=== PATIENT | female | born 1960 | race African-American/Black ===

== ENCOUNTER 2016-07-17 11:01 | Inpatient (IN) | payer BC ==
[2016-07-11 10:50] VITALS: BMI 37.2
[2016-07-28] MEDS ORDERED: LIDOCAINE 1%-EPI 1:100,000 30 ML MDV IJ ONE (07:15)
[2016-07-28] MEDS ORDERED: BUPIVACAINE HCL/PF 2.5 MG/ML - 30 ML VIAL IJ ONE (07:15)
[2016-07-28] MEDS ORDERED: oxyCODONE HCL 10 MG SUSTAINED ACTING TABLET ONE (07:24)
[2016-07-28] MEDS: oxyCODONE HCL 10 MG SUSTAINED ACTING TABLET PO STA ×2 (07:25→15:20)
--- NOTE | 2016-07-28 07:32 | HP ---
History & Physical Update - History History: No Change - Physical Physical: No Change - Assessment Assessment: No Change - Plan Plan: No Change (Here today for elective spine surgery. Prior to surgery, pt's chief complaint is low back pain with radiation down her RLE causing tingling in her foot. This is my first time meeting the patient. I informed her that I will be assisting Dr. Kelly during todays procedure. Patient is fine with it.)
[2016-07-28] MEDS ORDERED: MIDAZOLAM HCL 2 MG/2 ML SINGLE DOSE VIAL ONE ×2 (10:42→12:27)
[2016-07-28] MEDS ORDERED: ePHEDrine SULFATE 50 MG/1 ML AMPULE ONE (11:02)
[2016-07-28] MEDS ORDERED: LACTATED RINGERS SOLUTION 1,000 ML IV SCH ×2 (11:30→13:30)
[2016-07-28] MEDS ORDERED: oxyCODONE HCL 5 MG TABLET PO PRN ×2 (11:51→13:23)
[2016-07-28] MEDS ORDERED: ONDANSETRON 4 MG/2 ML VIAL IVPUSH PRN (11:51)
[2016-07-28] MEDS ORDERED: GUM MASTIC/STORAX/MSAL/ALCOHOL 1 DRP DROPSBTL MC ONE (12:51)
[2016-07-28] MEDS ORDERED: BUPIVACAINE HCL/PF 0.25% (2.5MG/ML) 10 ML VIAL IJ ONE (13:06)
[2016-07-28] MEDS ORDERED: ACETAMINOPHEN INJECTION 100 ML IVPB ONE (13:22)
--- NOTE | 2016-07-28 13:22 | OP ---
Operative Note - Note: Operative Date: 07/28/16 Pre-Operative Diagnosis: L5-S1 spondylollithesis, radicular pain Operation: Posterior lumbar decompression/fusion/instrumentation, transforaminal lumbar interbody fusion L5-S1, allograft implant and neuromonitoring Post-Operative Diagnosis: Same as Pre-op Surgeon: Aditya Kelly Administrative Library Assistant: Steve Grimes Anesthesiologist/RECREATION TEACHER: Travon Bell Anesthesia: Spinal Estimated Blood Loss (mls): 20 Drains & Tubes with Location: Lumbosacral region hemovac Fluid Volume Replaced (mls): 1,500 Operative Report Dictated: Yes
[2016-07-28] MEDS ORDERED: ONDANSETRON 4 MG/2 ML VIAL IVPB PRN (13:23)
[2016-07-28] MEDS ORDERED: KETOROLAC TROMETHAMINE 30 MG/1 ML VIAL IVPUSH PRN (13:23)
[2016-07-28] MEDS ORDERED: ACETAMINOPHEN 1000 MG/100 ML VIAL (NON FORMULARY) IVPB PRN ×2 (13:23→16:30)
--- NOTE | 2016-07-28 13:23 | SURG ---
Surgery Research Environmental Scientist Note Research Environmental Scientist: Steve Grimes PA-C Date of Service: 07/28/16 Diagnosis: L5-S1 spondylolithesis; radiculopathy Procedure: Posterior lumbar decompression/fusion/instrumentation, transforaminal lumbar interbody fusion L5-S1, allograft implant and neuromonitoring I was present for the entirety of the operative procedure. For further detail, please refer to operative report. Visit type - Case Type Case Type: Scheduled Admission - New patient This patient is new to me today: Yes Date on this admission: 07/28/16
[2016-07-28] MEDS: diazePAM CARPU-JECT 10 MG/2 ML DISP.SYRIN IVPUSH ONE ×3 (14:05→15:53)
[2016-07-28] MEDS ORDERED: IBUPROFEN 400 MG TABLET (FP) PO PRN (17:05)
[2016-07-28] MEDS: CLINDAMYCIN 900 MG PREMIX IVPB 50 ML IVPB SCH (17:13)
[2016-07-28] MEDS: PREGABALIN 50 MG CAPSULE PO SCH (21:22)
[2016-07-28] MEDS: oxyCODONE HCL 5 MG TABLET PO PRN (21:58)
[2016-07-28] MEDS ORDERED: MONTELUKAST NA 10 MG TABLET PO SCH (22:00)
[2016-07-28] MEDS ORDERED: CHOLECALCIFEROL (VITAMIN D3) 1,000 UNIT TABLET (FP) PO SCH (22:00)
[2016-07-28] MEDS: CYCLOBENZAPRINE HCL 10 MG TABLET (FP) PO PRN (22:30)
[2016-07-29] MEDS: CLINDAMYCIN 900 MG PREMIX IVPB 50 ML IVPB SCH ×2 (01:40→10:39)
[2016-07-29] MEDS: morphine CARPU-JECT 4 MG/1 ML DISP.SYRIN IVPUSH PRN ×2 (03:55)
[2016-07-29 05:52] VITALS: BP 127/78; PULSE 103; TEMP 99.4
[2016-07-29] MEDS: CYCLOBENZAPRINE HCL 10 MG TABLET (FP) PO PRN (06:35)
--- NOTE | 2016-07-29 07:02 | DS ---
Physical Exam: SUBJECTIVE: Patient seen and examined OBJECTIVE: Vital Signs Temperature 99.4 F 07/29/16 05:51 Pulse Rate 103 H 07/29/16 05:51 Respiratory Rate 19 07/29/16 05:51 Blood Pressure 127/78 07/29/16 05:51 O2 Sat by Pulse Oximetry (%) 96 07/29/16 05:51 PHYSICAL EXAM GENERAL: The patient is awake, alert, and fully oriented, in no acute distress. HEAD: Normal with no signs of trauma. EYES: PERRL, extraocular movements intact, sclera anicteric, conjunctiva clear. NECK: Trachea midline, full range of motion, supple. LUNGS: CTA b/l anteriorly HEART: RRR ABD: Soft,NT, ND, normoactive bowel sounds LE: 2+ pulses, warm, well-perfused, no edema. NEUROLOGICAL: CN II - XII grossly intact. Normal speech, gait not observed. PSYCH: Normal mood, normal affect. SKIN: Lumbosacral incision x2 c/d/i. Hemovac with minimal output. No signs of infection or hematoma LABS HOSPITAL COURSE: Date of Admission:07/28/16 Date of Discharge: 07/29/16 The patient was admitted to the Med-Surg Unit after an elective repair of their L5-S1 spondylolithesis. Now, s/p Posterior lumbar decompression/fusion/ instrumentation, transforaminal lumbar interbody fusion L5-S1, allograft implant and neuromonitoring. The day of surgery, the patient ambulated the hallways with assistance. Narcotic and non-narcotic pain management control was achieved with an oral and IV approach. POD #1, the surgical drain was removed fully intact and without incident. An xray was obtained and confirmed hardware placement at L5-S1, no fractures or dislocations. Bailey-operative IV ABX were administered. DVT prophylaxis was achieved with SCDs and early ambulation. The patient ambulated with Physical Therapy and no services were recommended upon discharge. Narcotic scripts and or muscle relaxants were checked with [facility] SCIENTIFIC SOFTWARE DEVELOPER prior to escribe. The discharge instructions and an oral pain management plan were reviewed with the patient. All questions answered. Above plan discussed with Dr. Kelly and agreed. Minutes to complete discharge: 15 <Steve Grimes P - Last Filed: 07/29/16 07:16> Physical Exam: SUBJECTIVE: Patient seen and examined OBJECTIVE: Vital Signs Temperature 99.4 F 07/29/16 05:51 Pulse Rate 103 H 07/29/16 05:51 Respiratory Rate 19 07/29/16 05:51 Blood Pressure 127/78 07/29/16 05:51 O2 Sat by Pulse Oximetry (%) 96 07/29/16 05:51 PHYSICAL EXAM GENERAL: The patient is awake, alert, and fully oriented, in no acute distress. HEAD: Normal with no signs of trauma. EYES: PERRL, extraocular movements intact, sclera anicteric, conjunctiva clear. ENT: Ears normal, nares patent, oropharynx clear without exudates, moist mucous membranes. NECK: Trachea midline, full range of motion, supple. LUNGS: Breath sounds equal, clear to auscultation bilaterally, no wheezes, no crackles, no accessory muscle use. HEART: Regular rate and rhythm, S1, S2 without murmur, rub or gallop. ABDOMEN: Soft, nontender, nondistended, normoactive bowel sounds, no guarding, no rebound, no hepatosplenomegaly, no masses. EXTREMITIES: 2+ pulses, warm, well-perfused, no edema. NEUROLOGICAL: Cranial nerves II through XII grossly intact. Normal speech, gait not observed. PSYCH: Normal mood, normal affect. SKIN: Warm, dry, normal turgor, no rashes or lesions noted. LABS CBC,CMP WBC 12.2 K/mm3 (4.0-10.8) H 07/29/16 07:40 RBC 4.03 M/mm3 (3.60-5.2) 07/29/16 07:40 Hgb 10.9 GM/dl (10.7-15.3) 07/29/16 07:40 Hct 32.4 % (32.4-45.2) 07/29/16 07:40 MCV 80.5 fl (80-96) 07/29/16 07:40 MCHC 33.5 g/dl (32.0-36.0) 07/29/16 07:40 RDW 14.2 % (11.6-15.6) 07/29/16 07:40 Plt Count 249 K/MM3 (134-434) 07/29/16 07:40 MPV 10.6 fl (7.5-11.1) 07/29/16 07:40 Sodium 140 mmol/L (136-145) 07/29/16 07:40 Potassium 4.5 mmol/L (3.5-5.1) 07/29/16 07:40 Chloride 105 mmol/L (98-107) 07/29/16 07:40 Carbon Dioxide 25 mmol/L (22-28) 07/29/16 07:40 Anion Gap 10 (8-16) 07/29/16 07:40 BUN 8 mg/dl (7-18) 07/29/16 07:40 Creatinine 0.6 mg/dl (0.6-1.3) 07/29/16 07:40 Random Glucose 133 mg/dl (74-106) H 07/29/16 07:40 Calcium 9.0 mg/dl (8.4-10.2) 07/29/16 07:40 HOSPITAL COURSE: Date of Admission:07/28/16 Date of Discharge: 07/31/16 The patient was admitted to the Med-Surg Unit after an elective repair of their L5-S1 Spondylolisthesis. The day of surgery, the patient ambulated the hallways with assistance. Narcotic and non-narcotic pain management control was achieved with an oral and IV approach. POD #1, the surgical drain was removed fully intact and without incident. An xray was obtained and confirmed hardware placement at L5-S1, no fractures or dislocations. Bailey-operative IV ABX were administered. DVT prophylaxis was achieved with SCDs and early ambulation. The patient ambulated with Physical Therapy and no services were recommended upon discharge. Narcotic scripts and or muscle relaxants were checked with [facility] SCIENTIFIC SOFTWARE DEVELOPER prior to escibe. The discharge instructions and an oral pain management plan were reviewed with the patient. All questions answered. Above plan discussed with Dr. Kelly and agreed. <Aditya Kelly - Last Filed: 07/31/16 15:41> Visit type - Case Type Case Type: Scheduled Admission <Steve Grimes - Last Filed: 07/29/16 07:16>
[2016-07-29] MEDS: oxyCODONE HCL 5 MG TABLET PO PRN (08:22)
[2016-07-29 09:05] LABS: MCHC 33.5 g/dl (32.0-36.0); MEAN CELL VOLUME 80.5 fl (80-96); MEAN PLT VOLUME 10.6 fl (7.5-11.1); PLATELET COUNT 249 K/MM3 (134-434); RDW 14.2 % (11.6-15.6); WHITE BLOOD COUNT 12.2 K/mm3 (4.0-10.8)
--- NOTE | 2016-07-29 09:19 | OP ---
DATE OF OPERATION: 07/28/2016 PREOPERATIVE DIAGNOSES: 1. Spondyloses, L5-S1. 2. Spinal stenosis. POSTOPERATIVE DIAGNOSES: 1. Spondyloses, L5-S1. 2. Spinal stenosis. PROCEDURE PERFORMED: 1. Transforaminal lumbar interbody fusion, L5-S1. 2. Placement of instrumentation, L5-S1. 3. Hemilaminectomy. 4. Placement of prosthetic cage. SURGEON: Aditya Kelly MD BRICK PITCHER: MADELEINE De Leon ESTIMATED BLOOD LOSS: 50 mL. INTRAVENOUS FLUID: Per Anesthesia. COMPLICATIONS: None. ANESTHESIA: Spinal. DISPOSITION: Patient brought to the PACU in stable condition. INDICATIONS FOR SURGERY: The patient is a 55-year-old female who has been suffering from pain from her back down her right leg. X-rays and MRI were completed, which noted that she had a spondylolisthesis at L5-S1 contributing to stenosis at that level. She had gone through an exhaustive course of treatment which included medications, physical therapy, as well as injections. Unfortunately, her pain continued to persist despite all this. At this point, risks, benefits, and alternatives were discussed, and the patient consented to surgery. OPERATIVE NOTE: Patient was brought to the operating room by Anesthesia. After appropriate patient identification was performed, spinal anesthesia was given. She was placed prone onto the OR table. The patient was able to position herself and pad all areas of bony prominences. The C-arm was brought in. The L5-S1 pedicles were marked off. Lidocaine, 10 mL, with epinephrine was injected into her back. At this time, her back was prepped and draped in a sterile manner. At this point, a time-out was completed. An incision was made over the L5-S1 pedicles. Dissection was carried down to the fascia. Fascia was split at this time. Under C-arm guidance, trocars were advanced above the L5-S1 pedicles, the trocar wires inserted, and over the wires, tap was performed. On the right-hand side, retractor blades were set up to expose the L5-S1 facet joint. The facet joint was removed with a joe and osteotome. The disc was entered using a series of pituitary, Kerrison rongeurs, and curettes. The discectomy was completed. The endplates were decorticated at this time. Bone was laid down. A size 8 cage filled with bone graft was placed in. Screw heads were placed over the screws. A derrek was measured and placed in. Capsule was placed on. Compression and final tightening was performed. On the left hand side, a derrek was measured and placed in and final tightening was performed. All extra instrumentation was removed at this time. AP and lateral x-rays confirmed the instrumentation to be in good position. The fascia was closed with a No. 1 Vicryl suture. The subcutaneous tissues were closed with 2-0 Vicryl suture. Skin was closed with 3-0 Monocryl suture. Dermabond was applied. Steri-Strips were applied. Sterile dressings were applied. Patient was placed supine on the OR bed and brought to the PACU in stable condition. It should be noted that patient was able to flex/ex her legs in the PACU. [place] [id number] MTDD
[2016-07-29] MEDS ORDERED: PT OWN MED DRAWER 7, Y5N ONE (09:36)
[2016-07-29] MEDS ORDERED: LORATADINE 10 MG TABLET PO SCH (10:00)
[2016-07-29] MEDS ORDERED: THYROID 30 MG TABLET PO SCH (10:00)
[2016-07-29] MEDS ORDERED: amLODIPine BESYLATE 10 MG TABLET (FP) PO SCH (10:00)
[2016-07-29] MEDS ORDERED: LEFLUNOMIDE 10 MG TABLET PO SCH (10:00)
[2016-07-29] MEDS: PREGABALIN 50 MG CAPSULE PO SCH (10:38)
[2016-07-29 11:06] LABS: ANION GAP 10 (8-16); CO2 25 mmol/L (22-28); CREATININE 0.6 mg/dl (0.6-1.3); GLUCOSE,RANDOM 133 mg/dl (74-106)
== END 2016-07-29 11:40 | disposition home or self-care (01) | DRG 460 ==
LOC: FM/S 07-28 07:11
PROVIDERS: ADMIT Orthopaedic Surgery Orthopaedic Surgery of the Spine; ATTEND Orthopaedic Surgery Orthopaedic Surgery of the Spine
PROC: 0SG30A1 (ICD-10-PCS; 2016-07-28)
PROC: 0SG00K1 Fusion of Lumbar Vertebral Joint with Nonautologous Tissue Substitute, Posterior Approach, Posterior Column, Open Approach (ICD-10-PCS; 2016-07-28)
PROC: 00NY0ZZ Release Lumbar Spinal Cord, Open Approach (ICD-10-PCS; principal; 2016-07-28 10:44)
DX: M43.17 Spondylolisthesis, lumbosacral region (principal); M48.06 Spinal stenosis, lumbar region; M47.897 Other spondylosis, lumbosacral region
CPT/HCPCS: 36415; 72100-TC; 76001-TC; 80048; 85027; 94010; 94760; 97116-GP; 97162-PG

== ENCOUNTER 2017-01-23 06:24 | Day surgery (SDC) | payer BC ==
[2017-01-19 11:41] VITALS: BMI 38.9
[2017-01-23] MEDS ORDERED: PROPOFOL 20 ML ONE ×4 (07:46→09:04)
[2017-01-23] MEDS ORDERED: SUCCINYLCHOLINE CHLORIDE 200 MG/10 ML VIAL ONE (07:47)
[2017-01-23] MEDS ORDERED: BUPIVACAINE HCL/PF 0.25% (2.5MG/ML) 10 ML VIAL IJ ONE (08:02)
[2017-01-23] MEDS ORDERED: LIDOCAINE HCL 1%, 10 MG/ML (50 mL VIAL) IJ ONE (08:02)
[2017-01-23] MEDS ORDERED: oxyCODONE HCL 5 MG TABLET PO PRN (08:23)
[2017-01-23] MEDS ORDERED: ONDANSETRON 4 MG/2 ML VIAL IVPUSH PRN (08:23)
[2017-01-23] MEDS ORDERED: PROMETHAZINE HCL 25 MG/1 ML VIAL IVPUSH PRN (08:23)
[2017-01-23] MEDS ORDERED: LACTATED RINGERS SOLUTION 1,000 ML IV SCH (08:30)
[2017-01-23] MEDS ORDERED: DEXAMETHASONE SOD PHOSPHATE 4 MG/1 ML VIAL ONE (08:55)
[2017-01-23] MEDS ORDERED: ONDANSETRON 4 MG/2 ML VIAL ONE (08:55)
[2017-01-23] MEDS ORDERED: ceFAZolin SODIUM 1 GM VIAL ONE (08:55)
[2017-01-23 09:08] VITALS: TEMP 97.6
[2017-01-23 09:27] VITALS: BP 134/74; PULSE 77
--- NOTE | 2017-01-25 22:13 | OP ---
DATE OF OPERATION: 01/23/2017 LOCATION: [facility]. SURGEON: Nura Deng MD [employer] COUNCIL MEMBER: MADELEINE Molina PREOPERATIVE DIAGNOSIS: Left carpal tunnel syndrome. POSTOPERATIVE DIAGNOSIS: Left carpal tunnel syndrome. PROCEDURE: Left carpal tunnel release, CPT code 45860. FINDINGS: Thickened transverse carpal ligament with impingement on the median nerve. PROCEDURE: Under sterile conditions, the upper extremity was prepped and draped in a sterile fashion. Incision was made along the longitudinal portion of the carpal tunnel. A longitudinal incision was made along the proximal portion of the palm, following the palm crease. This was taken down to the transcarpal ligament, which was released initially with scalpel and then extended proximally and distally using blunt tenotomy scissors. The median nerve was identified and completely released from impingement by the transcarpal ligament. The wound was then irrigated with copious amounts of irrigation. Skin was closed with 5-0 nylon in single interrupted sutures. [place] [id number]
== END 2017-01-23 09:50 | disposition home or self-care (01) ==
LOC: FASU 06:24
PROVIDERS: ATTEND Orthopaedic Surgery
PROC: 01N50ZZ Release Median Nerve, Open Approach (ICD-10-PCS; principal; 2017-01-23 07:30)
DX: G56.02 Carpal tunnel syndrome, left upper limb (principal)
CPT/HCPCS: 94760